=== PATIENT | female | born 1980 | race African-American/Black ===

== ENCOUNTER 2017-09-09 11:16 | Observation (INO) ==
[2017-09-09] MEDS ORDERED: ENOXAPARIN 80 MG/0.8 ML SYRINGE SUBCUT STA (11:47)
[2017-09-09] MEDS ORDERED: ENOXAPARIN 80 MG/0.8 ML SYRINGE SUBCUT ONE (12:03)
[2017-09-09 12:07] LABS: Basophils % 0.9 % (0.0-0.8); Eosinophils # 0.4 10*3/uL (0.0-0.87); Eosinophils % 8.5 % (0.00-10.9); Hematocrit 28.3 VOL% (35.7-47.0); Immature Granulocytes % 0.5 %; Immature Granulocytes Absolute 0.02 #; Lymphocytes # 0.9 10*3/uL (1.4-4.0); Lymphocytes % 21.3 % (21.3-54.2); Mean Corpuscular HGB Conc 28.3 GM/DL (32-36); Mean Corpuscular Hemoglobin 17 PG (27-34); Mean Corpuscular Volume 61.1 FL (87-102); Monocytes # 0.2 10*3/uL (0.11-0.8); Monocytes % 5.5 % (1.7-12.7); Neutrophils # 2.8 10*3/uL (1.4-7.4); Neutrophils % 63.3 % (38.7-73.9); Platelet Count 325 T/CUMM (130-400); Red Blood Count 4.63 MC/CUMM (3.8-5.5); Red Cell Distribution Width 21.8 % (9.3-17.3); White Blood Count 4.4 T/CUMM (4-12)
[2017-09-09 12:18] LABS: INR 1.5; PT Patient Result 15.3 SECS
[2017-09-09 12:34] LABS: Alanine Aminotransferase 18 U/L (13-56); Albumin 3.8 G/DL (3.4-5.0); Alkaline Phosphatase 75 U/L (45-117); Aspartate Amino Transferase 22 U/L (0-37); Blood Urea Nitrogen 9 MG/DL (7-18); Calcium 8.9 MG/DL (8.5-10.1); Glucose 83 MG/DL (74-106); Potassium 3.9 MMOL/L (3.5-5.1); Sodium 136 MMOL/L (136-145); Total Protein 8.8 G/DL (6.4-8.3)
[2017-09-09 12:41] LABS: Troponin I Only 0.072 NG/ML (0.00-0.045)
[2017-09-09 12:46] LABS: Hypochromasia 2+; Macrocytosis 1+; Platelet Estimate Adequate; Polychromasia Slight; Target Cells Slight
[2017-09-09 12:57] LABS: Apearance,Urine CLEAR (Clear); Bilirubin,Urine Negative (Negative); Blood, Urine Negative (Negative); Glucose,Urine (UA) Negative (Negative); Ketones,Urine Negative (Negative); Nitrite,Urine Negative (Negative); Protein,Urine Negative; RBC,Urine <1 /HPF (0-4); Squamous Epithelial Cell,Urine Occasional /HPF (0-10); Urine Color Colorless (Yellow); Urine Specific Gravity 1.004 (1.001-1.035); Urine Urobilinogen < 2.0 EU/DL (0.2-1.0); WBC,Urine <1 /HPF (0-6)
[2017-09-09] MEDS ORDERED: ACETAMINOPHEN 325 MG TABLET PO PRN (14:56)
[2017-09-09] MEDS ORDERED: ONDANSETRON 4 MG/2 ML VIAL IV PRN (14:56)
[2017-09-09 15:45] LABS: % Iron Saturation 3.4 % (18-50); Ferritin 2.5 ng/ml (8-252)
[2017-09-09] MEDS ORDERED: WARFARIN 5 MG TABLET PO SCH ×2 (18:00)
[2017-09-10] MEDS: ENOXAPARIN 80 MG/0.8 ML SYRINGE SUBCUT SCH ×2 (00:32→11:16)
[2017-09-10 05:15] LABS: Basophils # 0.1 10*3/uL (0.0-0.2); Basophils % 0.9 % (0.0-0.8); Eosinophils # 0.4 10*3/uL (0.0-0.87); Eosinophils % 7.3 % (0.00-10.9); Hematocrit 28.2 VOL% (35.7-47.0); Immature Granulocytes % 0.4 %; Immature Granulocytes Absolute 0.02 #; Lymphocytes # 1.3 10*3/uL (1.4-4.0); Lymphocytes % 23.6 % (21.3-54.2); Mean Corpuscular HGB Conc 28.4 GM/DL (32-36); Mean Corpuscular Hemoglobin 17 PG (27-34); Mean Corpuscular Volume 60.3 FL (87-102); Monocytes # 0.3 10*3/uL (0.11-0.8); Neutrophils # 3.5 10*3/uL (1.4-7.4); Neutrophils % 61.8 % (38.7-73.9); Platelet Count 335 T/CUMM (130-400); Red Blood Count 4.68 MC/CUMM (3.8-5.5); Red Cell Distribution Width 21.7 % (9.3-17.3); White Blood Count 5.6 T/CUMM (4-12)
[2017-09-10 05:20] LABS: Calcium 8.3 MG/DL (8.5-10.1); Osmolality,Calculated 277.4 MOS/KG (273-304); Potassium 4.1 MMOL/L (3.5-5.1)
[2017-09-10 06:06] LABS: Hypochromasia 2+; Microcytosis 2+; Ovalocytes Few
[2017-09-10 06:07] LABS: Platelet Estimate Normal; Target Cells Slight; Tear Drop Cells Slight
[2017-09-10] MEDS ORDERED: PANTOPRAZOLE 40 MG TABLET PO SCH (09:00)
[2017-09-10 09:40] LABS: Ferritin 2.7 ng/ml (8-252)
[2017-09-10 09:49] LABS: Folate 7.6 NG/ML (5.4-24.0)
[2017-09-10 10:01] LABS: % Iron Saturation 3.5 % (18-50)
[2017-09-10 15:47] VITALS: BP 130/77
== END 2017-09-10 16:20 | disposition home or self-care (01) ==
LOC: N.ED 11:16 → SUATTDRO 13:45 → INTOOBSV 13:45 → N.EDINP 13:45 → N.2E 16:18
PROVIDERS: ADMIT Internal Medicine; ATTEND Family Medicine

== ENCOUNTER 2018-12-07 12:08 | Observation (INO) ==
[2018-12-07] MEDS ORDERED: SODIUM CHLORIDE 0.9% 1,000 ML IV PRN (12:33)
[2018-12-07] MEDS ORDERED: DOCUSATE SODIUM 100 MG CAPSULE PO PRN (17:02)
[2018-12-07] MEDS ORDERED: ONDANSETRON 4 MG/2 ML VIAL IV PRN (17:02)
[2018-12-07] MEDS ORDERED: diphenhydrAMINE CAP 25 MG CAPSULE PO PRN (17:02)
[2018-12-07] MEDS ORDERED: ACETAMINOPHEN 325 MG TABLET PO PRN (17:02)
[2018-12-07] MEDS ORDERED: ALUMINUM/MAGNES/SIMETH MAX STR 30 ML UDCUP PO PRN (17:02)
[2018-12-07] MEDS ORDERED: guaiFENesin/DM ER 600-30 MG TABLET PO PRN (17:02)
[2018-12-07] MEDS ORDERED: ZALEPLON 5 MG CAPSULE PO PRN (17:02)
[2018-12-07] MEDS ORDERED: MAGNESIUM HYDROXIDE SUSP 30 ML UDCUP PO PRN (17:02)
[2018-12-07 19:58] LABS: Basophils % 0.4 % (0.0-0.8); Eosinophils % 0.2 % (0.00-10.9); Hematocrit 23.6 VOL% (35.7-47.0); Immature Granulocytes % 0.4 %; Immature Granulocytes Absolute 0.02 #; Lymphocytes # 0.9 10*3/uL (1.4-4.0); Lymphocytes % 17.5 % (21.3-54.2); Mean Corpuscular HGB Conc 24.6 GM/DL (32-36); Mean Corpuscular Volume 58.3 FL (87-102); Monocytes % 5.9 % (1.7-12.7); Neutrophils % 75.6 % (38.7-73.9); Platelet Count 160 T/CUMM (130-400); Red Blood Count 4.05 MC/CUMM (3.8-5.5); White Blood Count 5.3 T/CUMM (4-12)
[2018-12-07 20:07] LABS: Hemoglobin 5.8 GM/DL (12.0-16.0); Partial Thromboplastin Time 37.1 SECS (0-40)
[2018-12-07 20:21] LABS: Calcium 9.3 MG/DL (8.5-10.1); Osmolality,Calculated 275.5 MOS/KG (273-304)
[2018-12-07 20:22] LABS: % Iron Saturation 3.9 % (18-50)
[2018-12-07] MEDS ORDERED: WARFARIN 5 MG TABLET PO SCH (21:00)
[2018-12-07] MEDS: FERROUS SULFATE 325 MG TABLET PO SCH (23:10)
[2018-12-08 07:22] LABS: INR 3.4
[2018-12-08 07:27] LABS: PT Patient Result 36.8 SECS
[2018-12-08 07:47] LABS: Basophils % 0.8 % (0.0-0.8); Eosinophils # 0.3 10*3/uL (0.0-0.87); Eosinophils % 6.3 % (0.00-10.9); Hematocrit 30.4 VOL% (35.7-47.0); Hemoglobin 8.5 GM/DL (12.0-16.0); Immature Granulocytes % 0.2 %; Immature Granulocytes Absolute 0.01 #; Lymphocytes # 0.8 10*3/uL (1.4-4.0); Lymphocytes % 16.4 % (21.3-54.2); Mean Corpuscular Volume 64.5 FL (87-102); Monocytes % 6.5 % (1.7-12.7); Neutrophils % 69.8 % (38.7-73.9); Platelet Count 139 T/CUMM (130-400); Red Blood Count 4.71 MC/CUMM (3.8-5.5); Red Cell Distribution Width 32.5 % (9.3-17.3); White Blood Count 4.8 T/CUMM (4-12)
[2018-12-08 07:49] VITALS: BP 154/86
[2018-12-08] MEDS ORDERED: WARFARIN 2.5 MG TABLET PO SCH (08:26)
[2018-12-08] MEDS: FERROUS SULFATE 325 MG TABLET PO SCH (09:16)
[2018-12-08 12:22] LABS: Anisocytosis 3+; Hypochromasia 3+; Microcytosis 3+; Poikilocytosis 1+; Polychromasia Few
[2018-12-08 12:23] LABS: Ovalocytes Few; Platelet Estimate Adequate; Tear Drop Cells Few
== END 2018-12-08 11:16 | disposition home or self-care (01) ==
LOC: N.TELEN
PROVIDERS: ADMIT Internal Medicine Cardiovascular Disease; ATTEND Internal Medicine Cardiovascular Disease

== ENCOUNTER 2020-03-21 00:41 | Inpatient (IN) ==
[2020-03-21] MEDS ORDERED: ONDANSETRON 4 MG/2 ML VIAL IV STA (01:53)
[2020-03-21 02:08] LABS: PT Patient Result 11.1 SECS (9.8-11.9)
[2020-03-21 02:41] LABS: Alanine Aminotransferase 18 U/L (13-56); Albumin 3.5 G/DL (3.4-5.0); Alkaline Phosphatase 72 U/L (45-117); Aspartate Amino Transferase 25 U/L (0-37); Blood Urea Nitrogen 11 MG/DL (7-18); Calcium 8.5 MG/DL (8.5-10.1); Estimated Glom Filtration Rate 93 ML/MIN; Glucose 96 MG/DL (74-106); Osmolality,Calculated 271.8 MOS/KG (273-304); Total Protein 8.2 G/DL (6.4-8.3); Troponin I 0.043 NG/ML (0.00-0.045)
[2020-03-21 03:21] LABS: Basophils % 0.3 % (0.0-0.8); Eosinophils # 0.1 10*3/uL (0.0-0.87); Eosinophils % 2.1 % (0.00-10.9); Hematocrit 20.2 VOL% (35.7-47.0); Immature Granulocytes % 0.6 %; Immature Granulocytes Absolute 0.02 #; Lymphocytes # 0.7 10*3/uL (1.4-4.0); Lymphocytes % 21.6 % (21.3-54.2); Mean Corpuscular HGB Conc 25.7 GM/DL (32-36); Mean Corpuscular Volume 54.9 FL (87-102); NRBC # 0.03 10*3/uL; Neutrophils % 66.4 % (38.7-73.9); Platelet Count 274 T/CUMM (130-400); Red Blood Count 3.68 MC/CUMM (3.8-5.5); Red Cell Distribution Width 23.9 % (9.3-17.3); White Blood Count 3.3 T/CUMM (4-12)
[2020-03-21 03:23] LABS: Hemoglobin 5.2 GM/DL (12.0-16.0)
[2020-03-21 03:56] LABS: Bilirubin,Urine Negative (Negative); Blood, Urine Large mg/dL (Negative); Glucose,Urine (UA) Negative (Negative); Ketones,Urine Negative (Negative); Mucus,Urine Few /LPF (Occasional); Nitrite,Urine Negative (Negative); Protein,Urine 100 MG/DL; RBC,Urine 3273 /HPF (0-4); Squamous Epithelial Cell,Urine Moderate /HPF (0-10); Urine Appearance CLOUDY (Clear); Urine Color Red (Yellow); Urine Specific Gravity 1.019 (1.001-1.035); Urine Urobilinogen < 2.0 EU/DL (0.2-1.0)
[2020-03-21 04:27] LABS: Lymphocytes 24 % (20-55); Metamyelocytes 1 %; Segmented Neutrophils 67 % (50-85); Total Cells Counted 100
[2020-03-21 04:28] LABS: Hypochromasia 3+; Microcytosis 3+; Ovalocytes Few
[2020-03-21 04:29] LABS: Platelet Estimate Normal; Polychromasia Slight; Target Cells Slight; Tear Drop Cells Slight
[2020-03-21] MEDS ORDERED: ACETAMINOPHEN 325 MG TABLET PO PRN (05:58)
[2020-03-21] MEDS ORDERED: GLUCAGON 1 MG VIAL IM PRN (05:58)
[2020-03-21] MEDS ORDERED: SODIUM CHLORIDE 0.9% 1,000 ML IV PRN ×2 (05:58→09:58)
[2020-03-21] MEDS ORDERED: ONDANSETRON 4 MG/2 ML VIAL IV PRN (05:58)
[2020-03-21] MEDS ORDERED: DEXTROSE 50% 25 GM/50 ML VIAL IV PRN (05:58)
[2020-03-21] MEDS ORDERED: DEXTROSE 50% 25 GM/50 ML SYRINGE IV PRN (06:14)
[2020-03-21] MEDS ORDERED: HEPARIN DRIP 25,000 UNITS/500 ML PREMIX IV SCH (06:30)
[2020-03-21 10:46] LABS: Basophils % 0.5 % (0.0-0.8); Eosinophils % 0.5 % (0.00-10.9); Hematocrit 18.6 VOL% (35.7-47.0); Immature Granulocytes % 0.5 %; Immature Granulocytes Absolute 0.01 #; Lymphocytes # 0.5 10*3/uL (1.4-4.0); Lymphocytes % 23.3 % (21.3-54.2); Mean Corpuscular HGB Conc 25.8 GM/DL (32-36); Mean Corpuscular Volume 55.2 FL (87-102); Monocytes % 7.8 % (1.7-12.7); Neutrophils % 67.4 % (38.7-73.9); Red Blood Count 3.37 MC/CUMM (3.8-5.5); Red Cell Distribution Width 23.6 % (9.3-17.3); White Blood Count 2.2 T/CUMM (4-12)
[2020-03-21 10:56] LABS: Hemoglobin 4.8 GM/DL (12.0-16.0)
[2020-03-21 10:57] LABS: Platelet Count 205 T/CUMM (130-400)
[2020-03-21 11:23] LABS: Hypochromasia 3+; Microcytosis 3+; Ovalocytes Few; Tear Drop Cells Few
[2020-03-21 11:24] LABS: Platelet Estimate Normal; Polychromasia Slight
[2020-03-21] MEDS: ASPIRIN EC 81 MG TABLET PO SCH (12:37)
[2020-03-22 06:52] LABS: Basophils % 0.7 % (0.0-0.8); Eosinophils % 0.2 % (0.00-10.9); Hematocrit 31.6 VOL% (35.7-47.0); Hemoglobin 9.4 GM/DL (12.0-16.0); Immature Granulocytes % 0.5 %; Immature Granulocytes Absolute 0.02 #; Lymphocytes # 0.6 10*3/uL (1.4-4.0); Lymphocytes % 13.9 % (21.3-54.2); Mean Corpuscular HGB Conc 29.7 GM/DL (32-36); Mean Corpuscular Volume 65.4 FL (87-102); Monocytes % 6.8 % (1.7-12.7); Neutrophils % 77.9 % (38.7-73.9); Platelet Count 226 T/CUMM (130-400); Red Blood Count 4.83 MC/CUMM (3.8-5.5); Red Cell Distribution Width 31.8 % (9.3-17.3); White Blood Count 4.1 T/CUMM (4-12)
[2020-03-22 06:58] LABS: Hematocrit 31.7 VOL% (35.7-47.0); Hemoglobin 9.5 GM/DL (12.0-16.0)
[2020-03-22 07:11] LABS: Calcium 8.5 MG/DL (8.5-10.1); Osmolality,Calculated 273.7 MOS/KG (273-304)
[2020-03-22 07:43] LABS: Anisocytosis 2+; Platelet Estimate Normal; Poikilocytosis 1+
[2020-03-22 07:44] LABS: Hypochromasia Slight
[2020-03-22] MEDS: ASPIRIN EC 81 MG TABLET PO SCH (09:32)
[2020-03-22 14:05] LABS: Hematocrit 30.8 VOL% (35.7-47.0); Hemoglobin 9.3 GM/DL (12.0-16.0)
[2020-03-23 01:50] LABS: Hematocrit 31.7 VOL% (35.7-47.0); Hemoglobin 9.5 GM/DL (12.0-16.0)
[2020-03-23 02:06] LABS: Calcium 8.5 MG/DL (8.5-10.1); Osmolality,Calculated 275.7 MOS/KG (273-304)
[2020-03-23 05:25] LABS: Basophils % 0.9 % (0.0-0.8); Hematocrit 33.2 VOL% (35.7-47.0); Hemoglobin 9.9 GM/DL (12.0-16.0); Immature Granulocytes % 0.3 %; Immature Granulocytes Absolute 0.01 #; Lymphocytes # 0.7 10*3/uL (1.4-4.0); Lymphocytes % 20.1 % (21.3-54.2); Mean Corpuscular HGB Conc 29.8 GM/DL (32-36); Mean Corpuscular Volume 65.9 FL (87-102); Monocytes % 8.6 % (1.7-12.7); Neutrophils % 70.1 % (38.7-73.9); Platelet Count 169 T/CUMM (130-400); Red Blood Count 5.04 MC/CUMM (3.8-5.5); Red Cell Distribution Width 32.3 % (9.3-17.3); White Blood Count 3.5 T/CUMM (4-12)
[2020-03-23 05:57] LABS: Anisocytosis 3+; Platelet Estimate Normal; Poikilocytosis 1+; Polychromasia Slight; Tear Drop Cells Few
[2020-03-23 05:58] LABS: Ovalocytes Few
[2020-03-23 07:44] VITALS: BP 155/84
[2020-03-23] MEDS: ASPIRIN EC 81 MG TABLET PO SCH (09:14)
== END 2020-03-23 11:20 | disposition home or self-care (01) | DRG 812 ==
LOC: SUATTDRO → N.ED 00:41 → N.EDINP 05:58 → N.4E 09:12
PROVIDERS: ADMIT Internal Medicine; ATTEND Internal Medicine